=== PATIENT | male | born 1995 | race Hispanic/Latino ===

== ENCOUNTER 2016-10-12 01:59 | Emergency (ER) ==
[2016-10-12 02:18] VITALS: BP 134/71
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
== END 2016-10-12 02:45 | disposition home or self-care (01) ==
LOC: P.ED 01:59
DX: S61.012A Laceration without foreign body of left thumb without damage to nail, initial encounter (principal); M25.542 Pain in joints of left hand; W26.0XXA Contact with knife, initial encounter
CPT/HCPCS: 99282